=== PATIENT | male | born 1945 | race Caucasian/White ===

== ENCOUNTER 2021-08-05 07:56 | Inpatient (IN) | payer MEDICARE ==
[~2021-08-05] VITALS: Ht 182.9 cm; Wt 76.2 kg
[2021-08-05] MEDS ORDERED: AZITHROMYCIN 500 MG in DEXT 5% WATER 250 ML IV STA (08:20)
[2021-08-05] MEDS ORDERED: SODIUM CHLORIDE 0.9% 500 ML IV ONE (08:30)
[2021-08-05] MEDS ORDERED: DEXAMETHASONE 10 MG/ML VIAL IV ONE (08:30)
[2021-08-05] MEDS ORDERED: AZITHROMYCIN 500MG/250ML 250 ML IV SCH (08:30)
[2021-08-05] MEDS ORDERED: CEFTRIAXONE 1 G PREMIX 50 ML IV ONE (08:30)
[2021-08-05 08:52] LABS: HEMOGLOBIN. 16.5 g/dL (14.0-18.0); MEAN CORPUSCULAR HEMOGLOBIN 30.5 pg (28.0-32.0); MEAN CORPUSCULAR VOLUME 90.8 fL (80.0-94.0); MEAN PLATELET VOLUME 8.7 fl (7.4-10.4); PLATELET 291 x1000/uL (130-400); RED CELL DISTRIBUTION WIDTH 13.3 % (11.6-14.6)
[2021-08-05 08:59] LABS: CHLORIDE 96 mEq/L (98-107)
[2021-08-05 09:06] LABS: BG BASE EXCESS -0.2 mmol/L (-2.0-2.0); BG DEOXYHEMOGLOBIN 10.8 % (0.0-5.0); BG FRACTION INSPIRED OXYGEN 60; BG HCO3 ACT 22.7 mmol/L (22.0-26.0); BG METHEMOGLOBIN 0.3 % (0.0-1.5); BG OXYGEN SATURATION 89.1 % (92.0-98.5); BG OXYHEMOGLOBIN 87.9 % (94.0-97.0); BG PH 7.456 (7.350-7.450); BG PO2 56.2 mmHg (75.0-100.0); BG SAMPLE SITE RIGHT BRACHIAL; BG TOTAL HEMOGLOBIN 16.4 g/dL (12.0-18.0); BG TOTAL RESPIRATORY RATE 32 b/min; BG VENT MODE MASK - BIPAP
[2021-08-05 09:07] LABS: CREATINE KINASE 406 IU/L (39-308)
[2021-08-05 09:11] LABS: FIBRINOGEN 680 mg/dL (200-400); INR 1.2; PROTHROMBIN TIME 12.5 sec (9.6-11.0)
[2021-08-05 09:19] LABS: D-DIMER > 35.20 mg/L FEU (<0.50)
[2021-08-05 10:50] LABS: PLATELET ESTIMATE NORMAL
[2021-08-05 11:00] LABS: CLARITY URINE CLEAR (CLEAR); COLOR URINE DARK YELLOW (YELLOW); KETONES URINE NEGATIVE (NEGATIVE); LEUKOCYTE ESTERASE URINE NEGATIVE (NEGATIVE); NITRITE URINE NEGATIVE (NEGATIVE); OCCULT BLOOD URINE 1+ (NEGATIVE); PROTEIN URINE 3+ (NEGATIVE); SPECIFIC GRAVITY URINE 1.022 (1.005-1.030); UROBILINOGEN URINE 0.2 E.U./dL (0.2-1.0)
[2021-08-05] MEDS ORDERED: ONDANSETRON HCL 4MG/2ML INJ IV PRN (11:00)
[2021-08-05] MEDS ORDERED: CEFTRIAXONE 1 G PREMIX 50 ML IV SCH (11:00)
[2021-08-05] MEDS: ENOXAPARIN 30MG/0.3ML SYR SUBCUT SCH (11:30)
[2021-08-05 13:03] LABS: BG BASE EXCESS 0.1 mmol/L (-2.0-2.0); BG CARBOXYHEMOGLOBIN 0.2 % (0.5-1.5); BG DEOXYHEMOGLOBIN 3.3 % (0.0-5.0); BG FRACTION INSPIRED OXYGEN 100; BG HCO3 ACT 22.1 mmol/L (22.0-26.0); BG METHEMOGLOBIN 0.4 % (0.0-1.5); BG OXYGEN SATURATION 96.7 % (92.0-98.5); BG OXYHEMOGLOBIN 96.1 % (94.0-97.0); BG PCO2 29.7 mmHg (35.0-45.0); BG PO2 93.8 mmHg (75.0-100.0); BG SAMPLE SITE LEFT RADIAL; BG TOTAL HEMOGLOBIN 16.1 g/dL (12.0-18.0); BG VENT MODE MASK - BIPAP
[2021-08-05] MEDS ORDERED: SODIUM CHLORIDE 0.45% 1,000 ML IV SCH (13:15)
[2021-08-05] MEDS: ASPIRIN 81MG TABLET PO SCH (19:29)
[2021-08-06 05:28] LABS: HEMATOCRIT. 46.7 % (42.0-52.0); HEMOGLOBIN. 15.4 g/dL (14.0-18.0); MEAN CORPUSCULAR VOLUME 90.8 fL (80.0-94.0); MEAN PLATELET VOLUME 8.5 fl (7.4-10.4); PLATELET 126 x1000/uL (130-400); RED BLOOD CELL COUNT 5.14 mill/uL (4.7-6.1); RED CELL DISTRIBUTION WIDTH 13.7 % (11.6-14.6)
[2021-08-06] MEDS ORDERED: FAMOTIDINE 20MG/2ML VIAL IV NR (05:30)
[2021-08-06 05:34] LABS: CHLORIDE 100 mEq/L (98-107)
[2021-08-06 08:00] VITALS: BP 151/99
[2021-08-06] MEDS ORDERED: AZITHROMYCIN 500 MG in DEXT 5% WATER 250 ML IV SCH (09:00)
[2021-08-06] MEDS: AZITHROMYCIN 500 MG in DEXT 5% WATER 250 ML IV SCH (09:26)
[2021-08-06] MEDS: DEXAMETHASONE 10 MG/ML VIAL IV SCH (09:27)
[2021-08-06] MEDS: ASPIRIN 81MG TABLET PO SCH (09:27)
[2021-08-06] MEDS: CEFTRIAXONE 1,000 MG in DEXTROSE 5% WATER 50 ML IV SCH (09:28)
[2021-08-06 09:55] LABS: BG BASE EXCESS 0.1 mmol/L (-2.0-2.0); BG DEOXYHEMOGLOBIN 2.2 % (0.0-5.0); BG FRACTION INSPIRED OXYGEN 100; BG HCO3 ACT 23.4 mmol/L (22.0-26.0); BG METHEMOGLOBIN 0.5 % (0.0-1.5); BG OXYGEN SATURATION 97.8 % (92.0-98.5); BG OXYHEMOGLOBIN 97.3 % (94.0-97.0); BG PCO2 34.4 mmHg (35.0-45.0); BG PO2 107.3 mmHg (75.0-100.0); BG TOTAL HEMOGLOBIN 16.4 g/dL (12.0-18.0); BG VENT MODE MASK - BIPAP
[2021-08-06 10:53] VITALS: BP 151/91
[2021-08-06] MEDS ORDERED: AMLODIPINE 5MG TABLET PO SCH (11:30)
[2021-08-06 12:00] VITALS: BP 142/90
[2021-08-06 13:48] LABS: PLATELET ESTIMATE SLIGHTLY DECREASED
[2021-08-06] MEDS: ENOXAPARIN 30MG/0.3ML SYR SUBCUT SCH (14:25)
[2021-08-06] MEDS: SODIUM CHLORIDE 0.45% 1,000 ML IV SCH (14:26)
[2021-08-06 16:00] VITALS: BP 132/55
[2021-08-06 20:00] VITALS: BP 155/99
[2021-08-06] MEDS ORDERED: THROAT LOZENGES-BENZOCAINE/MENTH/CETYLPYRD CL LOZENGES MM PRN (20:00)
[2021-08-07] VITALS: BP 138/83
[2021-08-07 04:00] VITALS: BP 137/86
[2021-08-07] MEDS: SODIUM CHLORIDE 0.45% 1,000 ML IV SCH (06:02)
[2021-08-07 07:25] LABS: HEMATOCRIT. 41.2 % (42.0-52.0); HEMOGLOBIN. 13.9 g/dL (14.0-18.0); MEAN CORPUSCULAR HEMOGLOBIN 30.3 pg (28.0-32.0); MEAN CORPUSCULAR VOLUME 90.1 fL (80.0-94.0); MEAN PLATELET VOLUME 10.4 fl (7.4-10.4); PLATELET 72 x1000/uL (130-400); RED BLOOD CELL COUNT 4.57 mill/uL (4.7-6.1); RED CELL DISTRIBUTION WIDTH 13.9 % (11.6-14.6)
[2021-08-07 08:00] VITALS: BP 167/100
[2021-08-07] MEDS: CEFTRIAXONE 1,000 MG in DEXTROSE 5% WATER 50 ML IV SCH (09:43)
[2021-08-07] MEDS: AZITHROMYCIN 500 MG in DEXT 5% WATER 250 ML IV SCH (09:43)
[2021-08-07] MEDS: DEXAMETHASONE 10 MG/ML VIAL IV SCH (09:43)
[2021-08-07] MEDS: AMLODIPINE 5MG TABLET PO SCH ×2 (09:44→17:24)
[2021-08-07 09:51] LABS: BG BASE EXCESS -1.2 mmol/L (-2.0-2.0); BG CARBOXYHEMOGLOBIN 0.8 % (0.5-1.5); BG FRACTION INSPIRED OXYGEN 60; BG HCO3 ACT 21.7 mmol/L (22.0-26.0); BG METHEMOGLOBIN 0.4 % (0.0-1.5); BG OXYGEN SATURATION 92.9 % (92.0-98.5); BG OXYHEMOGLOBIN 91.8 % (94.0-97.0); BG SAMPLE SITE LEFT RADIAL; BG TOTAL HEMOGLOBIN 15.4 g/dL (12.0-18.0); BG TOTAL RESPIRATORY RATE 25 b/min; BG VENT MODE MASK - BIPAP
[2021-08-07 12:00] VITALS: BP 130/80
[2021-08-07] MEDS: BLOOD SUGAR DIAGNOSTIC STRIP TEST SCH ×3 (13:06→21:05)
[2021-08-07] MEDS: SODIUM CHLORIDE 0.9% 1,000 ML IV SCH ×2 (13:09→20:12)
[2021-08-07] MEDS: INSULIN LISPRO 100 UNITS/ML SUBCUT SCH ×3 (13:10→21:00)
[2021-08-07 16:00] VITALS: BP 130/81
[2021-08-07 19:04] LABS: PLATELET ESTIMATE DECREASED
[2021-08-07 20:00] VITALS: BP 117/78
[2021-08-08] VITALS: BP 113/71
[2021-08-08 04:00] VITALS: BP 121/72
[2021-08-08] MEDS: SODIUM CHLORIDE 0.9% 1,000 ML IV SCH ×3 (06:10→22:34)
[2021-08-08 07:44] LABS: HEMATOCRIT. 42.6 % (42.0-52.0); HEMOGLOBIN. 14.6 g/dL (14.0-18.0); MEAN CORPUSCULAR HEMOGLOBIN 31.1 pg (28.0-32.0); MEAN CORPUSCULAR VOLUME 90.6 fL (80.0-94.0); MEAN PLATELET VOLUME 10.2 fl (7.4-10.4); PLATELET 76 x1000/uL (130-400); RED BLOOD CELL COUNT 4.71 mill/uL (4.7-6.1); RED CELL DISTRIBUTION WIDTH 14.3 % (11.6-14.6)
[2021-08-08] MEDS: BLOOD SUGAR DIAGNOSTIC STRIP TEST SCH ×4 (07:52→21:00)
[2021-08-08 08:00] VITALS: BP 126/77
[2021-08-08 08:15] LABS: HEPATITIS B SURFACE ANTIGEN NEGATIVE
[2021-08-08] MEDS: AMLODIPINE 5MG TABLET PO SCH ×2 (08:25→09:00)
[2021-08-08] MEDS: MULTIVITAMINS,THER W-MINERALS TABLET PO SCH (08:25)
[2021-08-08] MEDS: DEXAMETHASONE 10 MG/ML VIAL IV SCH (08:25)
[2021-08-08] MEDS: AZITHROMYCIN 500 MG in DEXT 5% WATER 250 ML IV SCH (08:26)
[2021-08-08] MEDS: CEFTRIAXONE 1,000 MG in DEXTROSE 5% WATER 50 ML IV SCH (08:26)
[2021-08-08] MEDS: INSULIN LISPRO 100 UNITS/ML SUBCUT SCH ×4 (08:28→22:35)
[2021-08-08 12:00] VITALS: BP 121/76
[2021-08-08] MEDS ORDERED: THROAT LOZENGES-BENZOCAINE/MENTH/CETYLPYRD CL LOZENGES MM PRN (13:15)
[2021-08-08 13:26] LABS: PLATELET ESTIMATE DECREASED
[2021-08-08 16:00] VITALS: BP 121/85
[2021-08-08 20:43] VITALS: BP 144/73
[2021-08-08] MEDS: TAMSULOSIN HCL 0.4MG SR CAPSULE PO SCH (22:34)
[2021-08-09 00:05] VITALS: BP 133/69
[2021-08-09 04:00] VITALS: BP 145/80
[2021-08-09] MEDS: SODIUM CHLORIDE 0.9% 1,000 ML IV SCH ×3 (06:05→23:04)
[2021-08-09 06:21] LABS: HEMATOCRIT. 41.9 % (42.0-52.0); HEMOGLOBIN. 14.3 g/dL (14.0-18.0); MEAN CORPUSCULAR HEMOGLOBIN 30.6 pg (28.0-32.0); MEAN PLATELET VOLUME 9.9 fl (7.4-10.4); PLATELET 62 x1000/uL (130-400); RED BLOOD CELL COUNT 4.65 mill/uL (4.7-6.1)
[2021-08-09 06:32] LABS: CHLORIDE 109 mEq/L (98-107)
[2021-08-09] MEDS: BLOOD SUGAR DIAGNOSTIC STRIP TEST SCH ×4 (07:57→21:25)
[2021-08-09 08:00] VITALS: BP 143/85
[2021-08-09] MEDS: CEFTRIAXONE 1,000 MG in DEXTROSE 5% WATER 50 ML IV SCH (08:27)
[2021-08-09] MEDS: DEXAMETHASONE 10 MG/ML VIAL IV SCH (08:28)
[2021-08-09] MEDS: AZITHROMYCIN 500 MG in DEXT 5% WATER 250 ML IV SCH (08:28)
[2021-08-09] MEDS: AMLODIPINE 5MG TABLET PO SCH (08:30)
[2021-08-09] MEDS: INSULIN LISPRO 100 UNITS/ML SUBCUT SCH ×4 (08:34→21:34)
[2021-08-09 12:00] VITALS: BP 132/76
[2021-08-09 12:18] LABS: PLATELET ESTIMATE DECREASED
[2021-08-09] MEDS: MULTIVITAMINS,THER W-MINERALS TABLET PO SCH (13:13)
[2021-08-09] MEDS: GUAIFENESIN 600MG ER TABLET PO SCH ×2 (13:13→21:35)
[2021-08-09 16:00] VITALS: BP 128/68
[2021-08-09 19:10] LABS: ANA IFA Negative (.)
[2021-08-09 20:44] VITALS: BP 162/88
[2021-08-09] MEDS: INSULIN GLARGINE UD 100 UNITS/ML SYR SUBCUT SCH (21:34)
[2021-08-09] MEDS: TAMSULOSIN HCL 0.4MG SR CAPSULE PO SCH (21:37)
[2021-08-09] MEDS: HYDRALAZINE 20MG/ML VIAL IV PRN (21:40)
[2021-08-09] MEDS ORDERED: INSULIN GLARGINE UD 100 UNITS/ML SYR SUBCUT SCH (22:00)
[2021-08-10 00:49] VITALS: BP 164/89
[2021-08-10 04:00] VITALS: BP 129/77
[2021-08-10] MEDS: BLOOD SUGAR DIAGNOSTIC STRIP TEST SCH ×5 (07:41→21:34)
[2021-08-10] MEDS: INSULIN LISPRO 100 UNITS/ML SUBCUT SCH ×4 (07:41→21:36)
[2021-08-10 08:00] VITALS: BP 146/82
[2021-08-10] MEDS: MULTIVITAMINS,THER W-MINERALS TABLET PO SCH (08:37)
[2021-08-10] MEDS: CEFTRIAXONE 1,000 MG in DEXTROSE 5% WATER 50 ML IV SCH (08:41)
[2021-08-10] MEDS: AMLODIPINE 5MG TABLET PO SCH (08:41)
[2021-08-10] MEDS: AZITHROMYCIN 500 MG in DEXT 5% WATER 250 ML IV SCH (08:41)
[2021-08-10] MEDS: GUAIFENESIN 600MG ER TABLET PO SCH ×2 (08:41→21:35)
[2021-08-10] MEDS: DEXAMETHASONE 10 MG/ML VIAL IV SCH (08:42)
[2021-08-10] MEDS: INSULIN GLARGINE UD 100 UNITS/ML SYR SUBCUT SCH ×2 (09:14→21:37)
[2021-08-10 12:00] VITALS: BP 133/76
[2021-08-10 16:20] VITALS: BP 130/73
[2021-08-10] MEDS ORDERED: LEVOFLOXACIN 750MG PREMIX 150 ML IV NR (16:30)
[2021-08-10] MEDS: SODIUM CHLORIDE 0.9% 1,000 ML IV SCH (17:58)
[2021-08-10] MEDS ORDERED: LACTULOSE 20G/30ML UDC PO NR (18:30)
[2021-08-10 20:00] VITALS: BP 147/85
[2021-08-10 20:09] LABS: HEMATOCRIT. 40.5 % (42.0-52.0); HEMOGLOBIN. 13.2 g/dL (14.0-18.0); MEAN CORPUSCULAR HEMOGLOBIN 30.1 pg (28.0-32.0); MEAN CORPUSCULAR VOLUME 92.1 fL (80.0-94.0); MEAN PLATELET VOLUME 10.5 fl (7.4-10.4); PLATELET 68 x1000/uL (130-400); RED CELL DISTRIBUTION WIDTH 14.3 % (11.6-14.6)
[2021-08-10 20:34] LABS: CHLORIDE 110 mEq/L (98-107)
[2021-08-10] MEDS: TAMSULOSIN HCL 0.4MG SR CAPSULE PO SCH (21:35)
[2021-08-10 21:42] LABS: PLATELET ESTIMATE DECREASED
[2021-08-11 00:01] VITALS: BP 147/87
[2021-08-11] MEDS: SODIUM CHLORIDE 0.9% 1,000 ML IV SCH (02:45)
[2021-08-11 04:00] VITALS: BP 164/94
[2021-08-11] MEDS: HYDRALAZINE 20MG/ML VIAL IV PRN (04:06)
[2021-08-11] MEDS: BLOOD SUGAR DIAGNOSTIC STRIP TEST SCH ×4 (05:56→21:14)
[2021-08-11 08:00] VITALS: BP 156/88
[2021-08-11] MEDS: INSULIN LISPRO 100 UNITS/ML SUBCUT SCH ×4 (08:10→21:09)
[2021-08-11 08:34] LABS: HEMATOCRIT. 41.5 % (42.0-52.0); HEMOGLOBIN. 13.6 g/dL (14.0-18.0); MEAN CORPUSCULAR VOLUME 91.8 fL (80.0-94.0); MEAN PLATELET VOLUME 9.7 fl (7.4-10.4); PLATELET 72 x1000/uL (130-400); RED BLOOD CELL COUNT 4.52 mill/uL (4.7-6.1); RED CELL DISTRIBUTION WIDTH 14.2 % (11.6-14.6)
[2021-08-11] MEDS ORDERED: LEVOFLOXACIN 500MG PREMIX 100 ML IV SCH (09:00)
[2021-08-11] MEDS: MULTIVITAMINS,THER W-MINERALS TABLET PO SCH (09:24)
[2021-08-11] MEDS: AMLODIPINE 5MG TABLET PO SCH ×3 (09:25→21:10)
[2021-08-11] MEDS: GUAIFENESIN 600MG ER TABLET PO SCH ×2 (09:25→21:09)
[2021-08-11] MEDS: ACETAMINOPHEN 325MG TABLET PO PRN ×2 (09:26→21:10)
[2021-08-11] MEDS: DEXAMETHASONE 10 MG/ML VIAL IV SCH (09:26)
[2021-08-11] MEDS: DOCUSATE SODIUM 250MG CAPSULE PO SCH (09:28)
[2021-08-11] MEDS: INSULIN GLARGINE UD 100 UNITS/ML SYR SUBCUT SCH ×2 (09:29→21:11)
[2021-08-11 12:00] VITALS: BP 141/85
[2021-08-11 13:31] LABS: BG BASE EXCESS -1.9 mmol/L (-2.0-2.0); BG CARBOXYHEMOGLOBIN 0.2 % (0.5-1.5); BG DEOXYHEMOGLOBIN 6.1 % (0.0-5.0); BG FRACTION INSPIRED OXYGEN 99.8; BG HCO3 ACT 20.8 mmol/L (22.0-26.0); BG METHEMOGLOBIN 0.2 % (0.0-1.5); BG OXYGEN SATURATION 93.9 % (92.0-98.5); BG OXYHEMOGLOBIN 93.5 % (94.0-97.0); BG PCO2 30.1 mmHg (35.0-45.0); BG PH 7.458 (7.350-7.450); BG PO2 71.5 mmHg (75.0-100.0); BG SAMPLE SITE LEFT BRACHIAL; BG TOTAL HEMOGLOBIN 13.7 g/dL (12.0-18.0); BG VENT MODE MASK - NRB
[2021-08-11] MEDS ORDERED: SORBITOL 70% SOLN 30ML PO NR (14:30)
[2021-08-11 16:00] VITALS: BP 135/92
[2021-08-11 18:49] LABS: BG BASE EXCESS -1.3 mmol/L (-2.0-2.0); BG CARBOXYHEMOGLOBIN 0.3 % (0.5-1.5); BG FRACTION INSPIRED OXYGEN 100; BG HCO3 ACT 21.8 mmol/L (22.0-26.0); BG METHEMOGLOBIN 0.2 % (0.0-1.5); BG OXYHEMOGLOBIN 97.5 % (94.0-97.0); BG PCO2 31.9 mmHg (35.0-45.0); BG PH 7.452 (7.350-7.450); BG PO2 110.2 mmHg (75.0-100.0); BG SAMPLE SITE LEFT RADIAL; BG TOTAL HEMOGLOBIN 13.1 g/dL (12.0-18.0); BG TOTAL RESPIRATORY RATE 24 b/min; BG VENT MODE MASK - BIPAP
[2021-08-11 20:00] VITALS: BP 117/74
[2021-08-11] MEDS: TAMSULOSIN HCL 0.4MG SR CAPSULE PO SCH (21:16)
[2021-08-12] VITALS (26 sets, daily range): BP systolic 86–145; BP diastolic 62–92
[2021-08-12 06:48] LABS: HEMOGLOBIN. 12.5 g/dL (14.0-18.0); MEAN CORPUSCULAR HEMOGLOBIN 29.9 pg (28.0-32.0); MEAN PLATELET VOLUME 9.8 fl (7.4-10.4); PLATELET 63 x1000/uL (130-400); RED BLOOD CELL COUNT 4.18 mill/uL (4.7-6.1); RED CELL DISTRIBUTION WIDTH 14.2 % (11.6-14.6)
[2021-08-12 07:03] LABS: CHLORIDE 114 mEq/L (98-107)
[2021-08-12] MEDS: INSULIN LISPRO 100 UNITS/ML SUBCUT SCH ×3 (07:10→17:29)
[2021-08-12] MEDS: BLOOD SUGAR DIAGNOSTIC STRIP TEST SCH ×4 (07:10→15:58)
[2021-08-12 07:13] LABS: PHOSPHORUS 4.5 mg/dL (2.5-4.9)
[2021-08-12] MEDS: AMLODIPINE 5MG TABLET PO SCH (09:00)
[2021-08-12] MEDS ORDERED: SODIUM CHLORIDE 0.45% 1,000 ML IV SCH (09:00)
[2021-08-12] MEDS: DOCUSATE SODIUM 250MG CAPSULE PO SCH (09:18)
[2021-08-12] MEDS: DEXAMETHASONE 10 MG/ML VIAL IV SCH (09:18)
[2021-08-12] MEDS: MULTIVITAMINS,THER W-MINERALS TABLET PO SCH (09:18)
[2021-08-12] MEDS: GUAIFENESIN 600MG ER TABLET PO SCH ×2 (09:18→20:57)
[2021-08-12] MEDS ORDERED: ETOMIDATE 2MG/ML 10ML VIAL IV ONE ×2 (10:00→13:15)
[2021-08-12] MEDS ORDERED: SUCCINYLCHOLINE CHLORIDE 200MG/10ML IV ONE ×2 (10:00→13:15)
[2021-08-12] MEDS ORDERED: LACTULOSE 20G/30ML UDC PO NR (10:00)
[2021-08-12 10:18] LABS: NUCLEATED RED BLOOD CELLS 1 /100 WBC; PLATELET ESTIMATE DECREASED
[2021-08-12] MEDS ORDERED: SODIUM POLYSTYRENE SULFONATE 15 G/60 ML BOT PO NR (10:30)
[2021-08-12] MEDS ORDERED: LEVOFLOXACIN 750MG PREMIX 150 ML IV SCH (11:00)
[2021-08-12] MEDS: INSULIN GLARGINE UD 100 UNITS/ML SYR SUBCUT SCH ×2 (11:13→21:45)
[2021-08-12] MEDS: METOPROLOL TARTRATE 5MG/5ML VIAL IV PRN (12:43)
[2021-08-12 12:58] LABS: BG BASE EXCESS -3.9 mmol/L (-2.0-2.0); BG CARBOXYHEMOGLOBIN 0.5 % (0.5-1.5); BG DEOXYHEMOGLOBIN 36.7 % (0.0-5.0); BG FRACTION INSPIRED OXYGEN 100; BG HCO3 ACT 20.8 mmol/L (22.0-26.0); BG METHEMOGLOBIN 0.4 % (0.0-1.5); BG OXYHEMOGLOBIN 62.4 % (94.0-97.0); BG PH 7.368 (7.350-7.450); BG SAMPLE SITE LEFT RADIAL; BG TOTAL HEMOGLOBIN 14.1 g/dL (12.0-18.0); BG TOTAL RESPIRATORY RATE 38 b/min; BG VENT MODE MASK - BIPAP
[2021-08-12] MEDS ORDERED: MIDAZOLAM 100MG/100ML PMX 100 ML IV PRN (13:30)
[2021-08-12] MEDS: MIDAZOLAM HCL 100 MG in SODIUM CHLORIDE 0.9% 100 ML IV PRN (14:12)
[2021-08-12] MEDS: FENTANYL CITRATE/PF 2,500 MCG in SODIUM CHLORIDE 0.9% 200 ML IV PRN (14:14)
[2021-08-12] MEDS: PHENYLEPHRINE 100 MG in DEXT 5% WATER 240 ML IV PRN (15:55)
[2021-08-12] MEDS: ENOXAPARIN 80MG/0.8ML SYR SUBCUT SCH (15:57)
[2021-08-12] MEDS: DEXT 5%/0.2% NACL 1,000 ML IV SCH (16:29)
[2021-08-12 19:07] LABS: ANTI-MYELOPEROXIDASE AB < 9.0 U/mL (0.0-9.0); ANTI-PROTEINASE 3 ABS < 3.5 U/mL (0.0-3.5)
[2021-08-12 20:35] LABS: BG BASE EXCESS -1.9 mmol/L (-2.0-2.0); BG CARBOXYHEMOGLOBIN 0.3 % (0.5-1.5); BG DEOXYHEMOGLOBIN 4.2 % (0.0-5.0); BG FRACTION INSPIRED OXYGEN 100; BG HCO3 ACT 23.1 mmol/L (22.0-26.0); BG METHEMOGLOBIN 0.2 % (0.0-1.5); BG OXYGEN SATURATION 95.8 % (92.0-98.5); BG OXYHEMOGLOBIN 95.3 % (94.0-97.0); BG PCO2 40.3 mmHg (35.0-45.0); BG PH 7.377 (7.350-7.450); BG PO2 84.1 mmHg (75.0-100.0); BG SAMPLE SITE RIGHT RADIAL; BG TOTAL HEMOGLOBIN 12.1 g/dL (12.0-18.0); BG TOTAL RESPIRATORY RATE 19 b/min; BG VENT MODE VENT - AC
[2021-08-12] MEDS: TAMSULOSIN HCL 0.4MG SR CAPSULE PO SCH (21:00)
[2021-08-13] VITALS (93 sets, daily range): BP systolic 87–158; BP diastolic 50–113
[2021-08-13] MEDS: BLOOD SUGAR DIAGNOSTIC STRIP TEST SCH ×4 (01:25→18:00)
[2021-08-13] MEDS: INSULIN LISPRO 100 UNITS/ML SUBCUT SCH ×4 (01:25→18:00)
[2021-08-13] MEDS: ENOXAPARIN 80MG/0.8ML SYR SUBCUT SCH ×2 (02:54→14:17)
[2021-08-13 05:43] LABS: HEMATOCRIT. 37.5 % (42.0-52.0); HEMOGLOBIN. 12.5 g/dL (14.0-18.0); MEAN CORPUSCULAR HEMOGLOBIN 30.4 pg (28.0-32.0); MEAN CORPUSCULAR VOLUME 91.4 fL (80.0-94.0); MEAN PLATELET VOLUME 10.1 fl (7.4-10.4); PLATELET 108 x1000/uL (130-400); RED BLOOD CELL COUNT 4.11 mill/uL (4.7-6.1); RED CELL DISTRIBUTION WIDTH 14.2 % (11.6-14.6)
[2021-08-13 05:55] LABS: CHLORIDE 110 mEq/L (98-107)
[2021-08-13 07:26] LABS: PLATELET ESTIMATE DECREASED
[2021-08-13 08:51] LABS: PLATELET ESTIMATE DECREASED
[2021-08-13 09:11] LABS: GLOMERULAR BASEMENT MEMB AB 4 units (0-20)
[2021-08-13 09:15] LABS: BG BASE EXCESS 1.2 mmol/L (-2.0-2.0); BG CARBOXYHEMOGLOBIN 0.3 % (0.5-1.5); BG FRACTION INSPIRED OXYGEN 100; BG HCO3 ACT 26.8 mmol/L (22.0-26.0); BG METHEMOGLOBIN 0.3 % (0.0-1.5); BG OXYHEMOGLOBIN 97.4 % (94.0-97.0); BG PCO2 46.7 mmHg (35.0-45.0); BG PH 7.377 (7.350-7.450); BG PO2 109.5 mmHg (75.0-100.0); BG SAMPLE SITE RIGHT RADIAL; BG TOTAL HEMOGLOBIN 12.4 g/dL (12.0-18.0); BG VENT MODE VENT - AC
[2021-08-13] MEDS ORDERED: SODIUM POLYSTYRENE SULFONATE 15 G/60 ML BOT PO NR (09:30)
[2021-08-13] MEDS ORDERED: SODIUM POLYSTYRENE SULFONATE 15 G/60 ML BOT PO ONE (09:30)
[2021-08-13] MEDS: MULTIVITAMINS,THER W-MINERALS TABLET PO SCH (09:44)
[2021-08-13] MEDS: DEXAMETHASONE 10 MG/ML VIAL IV SCH (09:44)
[2021-08-13] MEDS: GUAIFENESIN 600MG ER TABLET PO SCH ×2 (09:44→20:54)
[2021-08-13] MEDS: DOCUSATE SODIUM 250MG CAPSULE PO SCH (09:44)
[2021-08-13] MEDS: DEXT 5%/0.2% NACL 1,000 ML IV SCH (09:45)
[2021-08-13] MEDS: INSULIN GLARGINE UD 100 UNITS/ML SYR SUBCUT SCH ×2 (09:48→22:09)
[2021-08-13] MEDS ORDERED: VANCOMYCIN 1500MG in DEXTROSE 5% WATER 250ML IV NR (11:00)
[2021-08-13 13:06] LABS: ATYPICAL P-ANCA <1:20 titer (Neg:<1:20); CYTOPLASMIC C-ANCA <1:20 titer (Neg:<1:20); PERINUCLEAR P-ANCA <1:20 titer (Neg:<1:20)
[2021-08-13] MEDS: MIDAZOLAM HCL 100 MG in SODIUM CHLORIDE 0.9% 100 ML IV PRN (14:21)
[2021-08-13 15:46] LABS: CLARITY URINE TURBID (CLEAR); COLOR URINE ORANGE (YELLOW); KETONES URINE NEGATIVE (NEGATIVE); LEUKOCYTE ESTERASE URINE 1+ (NEGATIVE); NITRITE URINE NEGATIVE (NEGATIVE); OCCULT BLOOD URINE 3+ (NEGATIVE); PROTEIN URINE 2+ (NEGATIVE); SPECIFIC GRAVITY URINE 1.019 (1.005-1.030)
[2021-08-13] MEDS: PIPERACILLIN/TAZOBACTAM 3.375 G in DEXTROSE 5% WATER 50 ML IV SCH ×2 (16:13→22:08)
[2021-08-13] MEDS: TAMSULOSIN HCL 0.4MG SR CAPSULE PO SCH (21:00)
[2021-08-13] MEDS: FENTANYL CITRATE/PF 2,500 MCG in SODIUM CHLORIDE 0.9% 200 ML IV PRN (22:38)
[2021-08-14] VITALS (91 sets, daily range): BP systolic 94–168; BP diastolic 55–114
[2021-08-14] MEDS: BLOOD SUGAR DIAGNOSTIC STRIP TEST SCH ×4 (00:18→18:00)
[2021-08-14] MEDS: DEXT 5%/0.2% NACL 1,000 ML IV SCH ×2 (01:50→18:36)
[2021-08-14] MEDS: ENOXAPARIN 80MG/0.8ML SYR SUBCUT SCH ×2 (03:48→15:20)
[2021-08-14] MEDS: INSULIN LISPRO 100 UNITS/ML SUBCUT SCH ×4 (06:00→18:00)
[2021-08-14] MEDS: PIPERACILLIN/TAZOBACTAM 3.375 G in DEXTROSE 5% WATER 50 ML IV SCH ×3 (06:12→22:43)
[2021-08-14 06:16] LABS: HEMATOCRIT. 30.5 % (42.0-52.0); HEMOGLOBIN. 10.2 g/dL (14.0-18.0); MEAN CORPUSCULAR HEMOGLOBIN 30.4 pg (28.0-32.0); MEAN CORPUSCULAR VOLUME 90.6 fL (80.0-94.0); MEAN PLATELET VOLUME 10.4 fl (7.4-10.4); PLATELET 119 x1000/uL (130-400); RED BLOOD CELL COUNT 3.37 mill/uL (4.7-6.1)
[2021-08-14 08:20] LABS: BG BASE EXCESS 0.7 mmol/L (-2.0-2.0); BG CARBOXYHEMOGLOBIN 0.1 % (0.5-1.5); BG DEOXYHEMOGLOBIN 3.9 % (0.0-5.0); BG HCO3 ACT 26.6 mmol/L (22.0-26.0); BG METHEMOGLOBIN 0.4 % (0.0-1.5); BG OXYGEN SATURATION 96.1 % (92.0-98.5); BG OXYHEMOGLOBIN 95.6 % (94.0-97.0); BG PCO2 48.3 mmHg (35.0-45.0); BG PH 7.359 (7.350-7.450); BG PO2 87.3 mmHg (75.0-100.0); BG SAMPLE SITE RIGHT BRACHIAL; BG VENT MODE VENT - AC
[2021-08-14] MEDS: INSULIN GLARGINE UD 100 UNITS/ML SYR SUBCUT SCH ×2 (10:00→22:45)
[2021-08-14] MEDS: MULTIVITAMINS,THER W-MINERALS TABLET PO SCH (10:22)
[2021-08-14] MEDS: DOCUSATE SODIUM 250MG CAPSULE PO SCH (10:22)
[2021-08-14] MEDS: PANTOPRAZOLE SODIUM 40 MG/VIAL IV SCH (10:22)
[2021-08-14] MEDS: DEXAMETHASONE 10 MG/ML VIAL IV SCH (10:22)
[2021-08-14] MEDS: GUAIFENESIN 600MG ER TABLET PO SCH ×2 (10:31→20:50)
[2021-08-14] MEDS: VANCOMYCIN 1 G PREMIX 200 ML IV SCH (11:18)
[2021-08-14 12:36] LABS: PLATELET ESTIMATE SLIGHTLY DECREASED
[2021-08-14] MEDS: TAMSULOSIN HCL 0.4MG SR CAPSULE PO SCH (20:50)
[2021-08-14] MEDS: MIDAZOLAM HCL 100 MG in SODIUM CHLORIDE 0.9% 100 ML IV PRN (21:04)
[2021-08-15] VITALS (97 sets, daily range): BP systolic 105–142; BP diastolic 66–97
[2021-08-15] MEDS: ENOXAPARIN 80MG/0.8ML SYR SUBCUT SCH ×2 (03:40→15:11)
[2021-08-15 05:43] LABS: HEMATOCRIT. 35.3 % (42.0-52.0); HEMOGLOBIN. 11.7 g/dL (14.0-18.0); MEAN CORPUSCULAR HEMOGLOBIN 30.4 pg (28.0-32.0); MEAN CORPUSCULAR VOLUME 91.5 fL (80.0-94.0); MEAN PLATELET VOLUME 9.9 fl (7.4-10.4); PLATELET 121 x1000/uL (130-400); RED BLOOD CELL COUNT 3.86 mill/uL (4.7-6.1)
[2021-08-15] MEDS: MIDAZOLAM HCL 100 MG in SODIUM CHLORIDE 0.9% 100 ML IV PRN (05:43)
[2021-08-15] MEDS: PIPERACILLIN/TAZOBACTAM 3.375 G in DEXTROSE 5% WATER 50 ML IV SCH ×3 (05:43→23:24)
[2021-08-15] MEDS: INSULIN LISPRO 100 UNITS/ML SUBCUT SCH ×3 (06:00→15:12)
[2021-08-15] MEDS: BLOOD SUGAR DIAGNOSTIC STRIP TEST SCH ×3 (06:00→11:59)
[2021-08-15] MEDS: FENTANYL CITRATE/PF 2,500 MCG in SODIUM CHLORIDE 0.9% 200 ML IV PRN (06:01)
[2021-08-15 06:08] LABS: PHOSPHORUS 4.6 mg/dL (2.5-4.9)
[2021-08-15 09:49] LABS: BG BASE EXCESS 1.1 mmol/L (-2.0-2.0); BG CARBOXYHEMOGLOBIN 0.3 % (0.5-1.5); BG FRACTION INSPIRED OXYGEN 70; BG HCO3 ACT 26.6 mmol/L (22.0-26.0); BG METHEMOGLOBIN 0.2 % (0.0-1.5); BG OXYHEMOGLOBIN 95.5 % (94.0-97.0); BG PCO2 46.1 mmHg (35.0-45.0); BG PH 7.379 (7.350-7.450); BG PO2 85.3 mmHg (75.0-100.0); BG SAMPLE SITE RIGHT RADIAL; BG TOTAL HEMOGLOBIN 11.6 g/dL (12.0-18.0); BG VENT MODE VENT - AC
[2021-08-15] MEDS: DOCUSATE SODIUM 250MG CAPSULE PO SCH (11:12)
[2021-08-15] MEDS: VANCOMYCIN 1 G PREMIX 200 ML IV SCH (11:12)
[2021-08-15] MEDS: MULTIVITAMINS,THER W-MINERALS TABLET PO SCH (11:12)
[2021-08-15] MEDS: GUAIFENESIN 600MG ER TABLET PO SCH ×2 (11:12→21:00)
[2021-08-15] MEDS: DEXAMETHASONE 10 MG/ML VIAL IV SCH (11:13)
[2021-08-15] MEDS: PANTOPRAZOLE SODIUM 40 MG/VIAL IV SCH (11:13)
[2021-08-15] MEDS: INSULIN GLARGINE UD 100 UNITS/ML SYR SUBCUT SCH ×2 (11:14→22:00)
[2021-08-15] MEDS: DEXT 5%/0.2% NACL 1,000 ML IV SCH (11:15)
[2021-08-15 11:28] LABS: PLATELET ESTIMATE SLIGHTLY DECREASED
[2021-08-15] MEDS: TAMSULOSIN HCL 0.4MG SR CAPSULE PO SCH (21:00)
[2021-08-16] VITALS (95 sets, daily range): BP systolic 102–130; BP diastolic 53–86
[2021-08-16] MEDS: ENOXAPARIN 80MG/0.8ML SYR SUBCUT SCH ×2 (02:30→14:12)
[2021-08-16] MEDS: DEXT 5%/0.2% NACL 1,000 ML IV SCH ×2 (05:08→21:35)
[2021-08-16] MEDS: MIDAZOLAM HCL 100 MG in SODIUM CHLORIDE 0.9% 100 ML IV PRN ×2 (05:10→22:26)
[2021-08-16] MEDS: BLOOD SUGAR DIAGNOSTIC STRIP TEST SCH ×5 (06:00→23:01)
[2021-08-16] MEDS: INSULIN LISPRO 100 UNITS/ML SUBCUT SCH ×5 (06:00→23:01)
[2021-08-16 06:18] LABS: HEMATOCRIT. 35.5 % (42.0-52.0); HEMOGLOBIN. 11.9 g/dL (14.0-18.0); MEAN CORPUSCULAR HEMOGLOBIN 30.8 pg (28.0-32.0); MEAN CORPUSCULAR VOLUME 91.5 fL (80.0-94.0); RED BLOOD CELL COUNT 3.87 mill/uL (4.7-6.1); RED CELL DISTRIBUTION WIDTH 13.8 % (11.6-14.6)
[2021-08-16 06:30] LABS: PHOSPHORUS 5.9 mg/dL (2.5-4.9)
[2021-08-16] MEDS: PIPERACILLIN/TAZOBACTAM 3.375 G in DEXTROSE 5% WATER 50 ML IV SCH ×3 (06:45→21:34)
[2021-08-16] MEDS: PANTOPRAZOLE SODIUM 40 MG/VIAL IV SCH (08:37)
[2021-08-16] MEDS: DEXAMETHASONE 10 MG/ML VIAL IV SCH (08:38)
[2021-08-16] MEDS: DOCUSATE SODIUM 250MG CAPSULE PO SCH (08:38)
[2021-08-16] MEDS: GUAIFENESIN 600MG ER TABLET PO SCH ×2 (08:38→21:34)
[2021-08-16] MEDS: MULTIVITAMINS,THER W-MINERALS TABLET PO SCH (08:38)
[2021-08-16 08:40] LABS: PLATELET ESTIMATE NORMAL
[2021-08-16 08:41] LABS: MEAN PLATELET VOLUME 10.1 fl (7.4-10.4)
[2021-08-16 08:42] LABS: PLATELET 163 x1000/uL (130-400)
[2021-08-16] MEDS: INSULIN GLARGINE UD 100 UNITS/ML SYR SUBCUT SCH ×2 (09:06→23:00)
[2021-08-16 10:48] LABS: BG BASE EXCESS -3.5 mmol/L (-2.0-2.0); BG CARBOXYHEMOGLOBIN 0.3 % (0.5-1.5); BG DEOXYHEMOGLOBIN 5.8 % (0.0-5.0); BG FRACTION INSPIRED OXYGEN 70; BG HCO3 ACT 22.5 mmol/L (22.0-26.0); BG METHEMOGLOBIN 0.2 % (0.0-1.5); BG OXYGEN SATURATION 94.2 % (92.0-98.5); BG OXYHEMOGLOBIN 93.7 % (94.0-97.0); BG PCO2 44.4 mmHg (35.0-45.0); BG PH 7.323 (7.350-7.450); BG PO2 76.5 mmHg (75.0-100.0); BG SAMPLE SITE RIGHT BRACHIAL; BG TOTAL HEMOGLOBIN 11.8 g/dL (12.0-18.0); BG TOTAL RESPIRATORY RATE 16 b/min; BG VENT MODE VENT - AC
[2021-08-16 11:14] LABS: CHLORIDE 106 mEq/L (98-107)
[2021-08-16] MEDS: TAMSULOSIN HCL 0.4MG SR CAPSULE PO SCH (21:34)
[2021-08-16] MEDS: FENTANYL CITRATE/PF 2,500 MCG in SODIUM CHLORIDE 0.9% 200 ML IV PRN (22:27)
[2021-08-17] VITALS (91 sets, daily range): BP systolic 97–152; BP diastolic 55–86
[2021-08-17] MEDS: BLOOD SUGAR DIAGNOSTIC STRIP TEST SCH ×3 (05:16→16:28)
[2021-08-17] MEDS: INSULIN LISPRO 100 UNITS/ML SUBCUT SCH ×3 (05:16→16:53)
[2021-08-17] MEDS: PIPERACILLIN/TAZOBACTAM 3.375 G in DEXTROSE 5% WATER 50 ML IV SCH ×3 (05:17→22:32)
[2021-08-17 05:53] LABS: HEMATOCRIT. 32.2 % (42.0-52.0); HEMOGLOBIN. 10.8 g/dL (14.0-18.0); MEAN CORPUSCULAR HEMOGLOBIN 30.3 pg (28.0-32.0); MEAN CORPUSCULAR VOLUME 90.6 fL (80.0-94.0); MEAN PLATELET VOLUME 10.9 fl (7.4-10.4); PLATELET 166 x1000/uL (130-400); RED BLOOD CELL COUNT 3.56 mill/uL (4.7-6.1); RED CELL DISTRIBUTION WIDTH 13.5 % (11.6-14.6)
[2021-08-17 06:25] LABS: PHOSPHORUS 4.8 mg/dL (2.5-4.9)
[2021-08-17 07:59] LABS: BG BASE EXCESS -1.9 mmol/L (-2.0-2.0); BG CARBOXYHEMOGLOBIN 0.3 % (0.5-1.5); BG HCO3 ACT 25.5 mmol/L (22.0-26.0); BG METHEMOGLOBIN 0.3 % (0.0-1.5); BG OXYGEN SATURATION 89.9 % (92.0-98.5); BG OXYHEMOGLOBIN 89.4 % (94.0-97.0); BG PCO2 54.7 mmHg (35.0-45.0); BG PH 7.286 (7.350-7.450); BG PO2 63.6 mmHg (75.0-100.0); BG SAMPLE SITE RIGHT RADIAL; BG TOTAL HEMOGLOBIN 12.8 g/dL (12.0-18.0); BG VENT MODE VENT - AC
[2021-08-17] MEDS: GUAIFENESIN 600MG ER TABLET PO SCH ×2 (09:03→22:32)
[2021-08-17] MEDS: PANTOPRAZOLE SODIUM 40 MG/VIAL IV SCH (09:03)
[2021-08-17] MEDS: MULTIVITAMINS,THER W-MINERALS TABLET PO SCH (09:03)
[2021-08-17] MEDS: DEXAMETHASONE 10 MG/ML VIAL IV SCH (09:03)
[2021-08-17] MEDS: DOCUSATE SODIUM SUGAR FREE 100MG/10ML UDC NG SCH (09:03)
[2021-08-17 10:01] LABS: PLATELET ESTIMATE NORMAL
[2021-08-17] MEDS: INSULIN GLARGINE UD 100 UNITS/ML SYR SUBCUT SCH ×2 (10:15→22:33)
[2021-08-17] MEDS: MIDAZOLAM HCL 100 MG in SODIUM CHLORIDE 0.9% 100 ML IV PRN ×2 (11:25→22:44)
[2021-08-17] MEDS: FENTANYL CITRATE/PF 2,500 MCG in SODIUM CHLORIDE 0.9% 200 ML IV PRN ×2 (11:26→23:26)
[2021-08-17] MEDS: ENOXAPARIN 80MG/0.8ML SYR SUBCUT SCH (14:18)
[2021-08-17] MEDS ORDERED: [UNRECOGNIZED DRUG - REMARK] XX SCH (14:30)
[2021-08-17] MEDS ORDERED: MIDAZOLAM 100MG/100ML PMX 100 ML IV PRN (19:15)
[2021-08-17] MEDS ORDERED: MIDAZOLAM HCL 100 MG in SODIUM CHLORIDE 0.9% 100 ML IV PRN (19:30)
[2021-08-17] MEDS: TAMSULOSIN HCL 0.4MG SR CAPSULE PO SCH (22:32)
[2021-08-18] VITALS (79 sets, daily range): BP systolic 99–198; BP diastolic 55–115
[2021-08-18] MEDS: BLOOD SUGAR DIAGNOSTIC STRIP TEST SCH ×4 (00:28→18:28)
[2021-08-18] MEDS: INSULIN LISPRO 100 UNITS/ML SUBCUT SCH ×4 (00:29→18:00)
[2021-08-18] MEDS: DEXT 5%/0.2% NACL 1,000 ML IV SCH (03:49)
[2021-08-18] MEDS: PIPERACILLIN/TAZOBACTAM 3.375 G in DEXTROSE 5% WATER 50 ML IV SCH ×3 (06:00→22:08)
[2021-08-18 06:02] LABS: HEMATOCRIT. 28.7 % (42.0-52.0); HEMOGLOBIN. 9.7 g/dL (14.0-18.0); MEAN CORPUSCULAR HEMOGLOBIN 30.8 pg (28.0-32.0); MEAN CORPUSCULAR VOLUME 91.2 fL (80.0-94.0); MEAN PLATELET VOLUME 10.4 fl (7.4-10.4); PLATELET 156 x1000/uL (130-400); RED BLOOD CELL COUNT 3.15 mill/uL (4.7-6.1)
[2021-08-18 06:33] LABS: PHOSPHORUS 3.9 mg/dL (2.5-4.9)
[2021-08-18] MEDS: MULTIVITAMINS,THER W-MINERALS TABLET PO SCH (09:07)
[2021-08-18] MEDS: DOCUSATE SODIUM SUGAR FREE 100MG/10ML UDC NG SCH (09:07)
[2021-08-18] MEDS: DEXAMETHASONE 10 MG/ML VIAL IV SCH (09:07)
[2021-08-18] MEDS: GUAIFENESIN 600MG ER TABLET PO SCH ×2 (09:07→22:07)
[2021-08-18] MEDS: PANTOPRAZOLE SODIUM 40 MG/VIAL IV SCH (09:07)
[2021-08-18 10:23] LABS: BG BASE EXCESS 4.6 mmol/L (-2.0-2.0); BG CARBOXYHEMOGLOBIN 0.4 % (0.5-1.5); BG DEOXYHEMOGLOBIN 1.5 % (0.0-5.0); BG FRACTION INSPIRED OXYGEN 85; BG HCO3 ACT 32.1 mmol/L (22.0-26.0); BG METHEMOGLOBIN 0.3 % (0.0-1.5); BG OXYGEN SATURATION 98.5 % (92.0-98.5); BG OXYHEMOGLOBIN 97.8 % (94.0-97.0); BG PCO2 64.2 mmHg (35.0-45.0); BG PH 7.317 (7.350-7.450); BG SAMPLE SITE RIGHT RADIAL; BG TOTAL HEMOGLOBIN 10.6 g/dL (12.0-18.0); BG VENT MODE VENT - AC
[2021-08-18] MEDS: INSULIN GLARGINE UD 100 UNITS/ML SYR SUBCUT SCH ×2 (10:25→22:07)
[2021-08-18 12:07] LABS: PLATELET ESTIMATE NORMAL
[2021-08-18] MEDS: ENOXAPARIN 80MG/0.8ML SYR SUBCUT SCH (14:05)
[2021-08-18] MEDS: FENTANYL CITRATE/PF 2,500 MCG in SODIUM CHLORIDE 0.9% 200 ML IV PRN (16:19)
[2021-08-18] MEDS ORDERED: MIDAZOLAM HCL 2 MG/2 ML VIAL IV NR (18:00)
[2021-08-18] MEDS ORDERED: FUROSEMIDE 40MG/4ML VIAL IVP NR (18:00)
[2021-08-18] MEDS: MIDAZOLAM HCL 2 MG/2 ML VIAL IV PRN ×2 (20:58→22:53)
[2021-08-18] MEDS: METOPROLOL TARTRATE 5MG/5ML VIAL IV PRN (21:53)
[2021-08-18] MEDS: TAMSULOSIN HCL 0.4MG SR CAPSULE PO SCH (22:08)
[2021-08-18] MEDS: HYDRALAZINE 20MG/ML VIAL IV PRN (22:54)
[2021-08-19] VITALS (96 sets, daily range): BP systolic 113–185; BP diastolic 63–114
[2021-08-19] MEDS: BLOOD SUGAR DIAGNOSTIC STRIP TEST SCH ×4 (00:35→18:16)
[2021-08-19] MEDS: ENOXAPARIN 80MG/0.8ML SYR SUBCUT SCH ×3 (00:38→20:54)
[2021-08-19] MEDS: INSULIN LISPRO 100 UNITS/ML SUBCUT SCH ×5 (00:40→23:40)
[2021-08-19 05:12] LABS: HEMATOCRIT. 34.8 % (42.0-52.0); HEMOGLOBIN. 11.1 g/dL (14.0-18.0); MEAN CORPUSCULAR HEMOGLOBIN 30.3 pg (28.0-32.0); MEAN CORPUSCULAR VOLUME 95.5 fL (80.0-94.0); MEAN PLATELET VOLUME 10.5 fl (7.4-10.4); PLATELET 262 x1000/uL (130-400); RED BLOOD CELL COUNT 3.65 mill/uL (4.7-6.1); RED CELL DISTRIBUTION WIDTH 14.2 % (11.6-14.6)
[2021-08-19 05:30] LABS: PHOSPHORUS 3.4 mg/dL (2.5-4.9)
[2021-08-19 05:43] LABS: FOLIC ACID (FOLATE) SERUM 12.7 ng/mL (>5.38)
[2021-08-19] MEDS: PIPERACILLIN/TAZOBACTAM 3.375 G in DEXTROSE 5% WATER 50 ML IV SCH ×2 (06:17→14:30)
[2021-08-19] MEDS ORDERED: CEFEPIME 1,000 MG in DEXTROSE 5% WATER 50 ML IV SCH (08:15)
[2021-08-19 08:33] LABS: BG BASE EXCESS 1.2 mmol/L (-2.0-2.0); BG CARBOXYHEMOGLOBIN 0.3 % (0.5-1.5); BG DEOXYHEMOGLOBIN 5.5 % (0.0-5.0); BG FRACTION INSPIRED OXYGEN 80; BG HCO3 ACT 28.7 mmol/L (22.0-26.0); BG METHEMOGLOBIN 0.1 % (0.0-1.5); BG OXYGEN SATURATION 94.5 % (92.0-98.5); BG OXYHEMOGLOBIN 94.1 % (94.0-97.0); BG PCO2 59.7 mmHg (35.0-45.0); BG PO2 77.9 mmHg (75.0-100.0); BG SAMPLE SITE RIGHT RADIAL; BG TOTAL HEMOGLOBIN 12.1 g/dL (12.0-18.0); BG VENT MODE VENT - AC
[2021-08-19] MEDS: DEXAMETHASONE 4MG/ML 1ML VIAL IV SCH (09:30)
[2021-08-19] MEDS: PANTOPRAZOLE SODIUM 40 MG/VIAL IV SCH (09:30)
[2021-08-19] MEDS: MULTIVITAMINS,THER W-MINERALS TABLET PO SCH (09:30)
[2021-08-19] MEDS: DOCUSATE SODIUM SUGAR FREE 100MG/10ML UDC NG SCH (09:30)
[2021-08-19] MEDS: GUAIFENESIN 600MG ER TABLET PO SCH ×2 (09:31→20:54)
[2021-08-19] MEDS: INSULIN GLARGINE UD 100 UNITS/ML SYR SUBCUT SCH ×2 (09:31→23:41)
[2021-08-19] MEDS: MEROPENEM 1,000 MG in SODIUM CHLORIDE 0.9% 100 ML IV SCH ×2 (09:32→18:04)
[2021-08-19] MEDS: MIDAZOLAM HCL 2 MG/2 ML VIAL IV PRN ×3 (11:40→20:54)
[2021-08-19 15:11] LABS: BG BASE EXCESS 3.2 mmol/L (-2.0-2.0); BG CARBOXYHEMOGLOBIN 0.1 % (0.5-1.5); BG DEOXYHEMOGLOBIN 3.5 % (0.0-5.0); BG FRACTION INSPIRED OXYGEN 80; BG HCO3 ACT 30.5 mmol/L (22.0-26.0); BG METHEMOGLOBIN 0.4 % (0.0-1.5); BG OXYGEN SATURATION 96.5 % (92.0-98.5); BG PCO2 59.9 mmHg (35.0-45.0); BG PH 7.325 (7.350-7.450); BG PO2 89.2 mmHg (75.0-100.0); BG SAMPLE SITE RIGHT RADIAL; BG TOTAL HEMOGLOBIN 11.9 g/dL (12.0-18.0); BG VENT MODE VENT - AC
[2021-08-19 17:02] LABS: PLATELET ESTIMATE NORMAL
[2021-08-19 18:32] LABS: BG BASE EXCESS 5.7 mmol/L (-2.0-2.0); BG DEOXYHEMOGLOBIN 9.3 % (0.0-5.0); BG FRACTION INSPIRED OXYGEN 50; BG HCO3 ACT 31.4 mmol/L (22.0-26.0); BG METHEMOGLOBIN 0.2 % (0.0-1.5); BG OXYGEN SATURATION 90.7 % (92.0-98.5); BG OXYHEMOGLOBIN 90.5 % (94.0-97.0); BG PCO2 50.5 mmHg (35.0-45.0); BG PH 7.411 (7.350-7.450); BG PO2 56.1 mmHg (75.0-100.0); BG SAMPLE SITE RIGHT RADIAL; BG VENT MODE VENT - AC
[2021-08-19] MEDS: TAMSULOSIN HCL 0.4MG SR CAPSULE PO SCH (20:54)
[2021-08-20] VITALS (89 sets, daily range): BP systolic 113–163; BP diastolic 65–100
[2021-08-20] MEDS: BLOOD SUGAR DIAGNOSTIC STRIP TEST SCH ×5 (00:21→23:44)
[2021-08-20] MEDS: MIDAZOLAM HCL 2 MG/2 ML VIAL IV PRN (01:29)
[2021-08-20] MEDS: MEROPENEM 1,000 MG in SODIUM CHLORIDE 0.9% 100 ML IV SCH ×3 (03:07→17:28)
[2021-08-20] MEDS: INSULIN LISPRO 100 UNITS/ML SUBCUT SCH ×4 (06:00→23:44)
[2021-08-20 06:17] LABS: HEMATOCRIT. 34.7 % (42.0-52.0); MEAN CORPUSCULAR HEMOGLOBIN 29.5 pg (28.0-32.0); MEAN CORPUSCULAR VOLUME 93.3 fL (80.0-94.0); MEAN PLATELET VOLUME 10.6 fl (7.4-10.4); PLATELET 220 x1000/uL (130-400); RED BLOOD CELL COUNT 3.72 mill/uL (4.7-6.1); RED CELL DISTRIBUTION WIDTH 14.3 % (11.6-14.6)
[2021-08-20 06:56] LABS: PHOSPHORUS 3.2 mg/dL (2.5-4.9)
[2021-08-20] MEDS: DEXTROSE 5% WATER 1,000 ML IV SCH (08:49)
[2021-08-20] MEDS: GUAIFENESIN 600MG ER TABLET PO SCH ×2 (08:49→21:14)
[2021-08-20] MEDS: DOCUSATE SODIUM SUGAR FREE 100MG/10ML UDC NG SCH (08:49)
[2021-08-20] MEDS: DEXAMETHASONE 4MG/ML 1ML VIAL IV SCH (08:49)
[2021-08-20] MEDS: MULTIVITAMINS,THER W-MINERALS TABLET PO SCH (08:49)
[2021-08-20] MEDS: PANTOPRAZOLE SODIUM 40 MG/VIAL IV SCH (08:49)
[2021-08-20] MEDS: ENOXAPARIN 80MG/0.8ML SYR SUBCUT SCH ×2 (08:50→21:14)
[2021-08-20 09:09] LABS: BG CARBOXYHEMOGLOBIN 0.3 % (0.5-1.5); BG DEOXYHEMOGLOBIN 8.2 % (0.0-5.0); BG FRACTION INSPIRED OXYGEN 60; BG HCO3 ACT 31.4 mmol/L (22.0-26.0); BG METHEMOGLOBIN 0.3 % (0.0-1.5); BG OXYGEN SATURATION 91.8 % (92.0-98.5); BG OXYHEMOGLOBIN 91.2 % (94.0-97.0); BG PCO2 48.8 mmHg (35.0-45.0); BG PH 7.426 (7.350-7.450); BG PO2 63.9 mmHg (75.0-100.0); BG SAMPLE SITE RIGHT RADIAL; BG TOTAL HEMOGLOBIN 11.5 g/dL (12.0-18.0); BG TOTAL RESPIRATORY RATE 39 b/min; BG VENT MODE VENT - AC
[2021-08-20] MEDS: INSULIN GLARGINE UD 100 UNITS/ML SYR SUBCUT SCH ×2 (10:47→21:16)
[2021-08-20 11:09] LABS: PLATELET ESTIMATE NORMAL
[2021-08-20] MEDS: FENTANYL CITRATE/PF 2,500 MCG in SODIUM CHLORIDE 0.9% 200 ML IV PRN (17:29)
[2021-08-20] MEDS: TAMSULOSIN HCL 0.4MG SR CAPSULE PO SCH (21:15)
[2021-08-21] VITALS (94 sets, daily range): BP systolic 70–168; BP diastolic 40–101
[2021-08-21] MEDS: MEROPENEM 1,000 MG in SODIUM CHLORIDE 0.9% 100 ML IV SCH ×3 (02:07→17:58)
[2021-08-21] MEDS: DEXTROSE 5% WATER 1,000 ML IV SCH (04:49)
[2021-08-21] MEDS: INSULIN LISPRO 100 UNITS/ML SUBCUT SCH ×3 (05:03→17:54)
[2021-08-21] MEDS: BLOOD SUGAR DIAGNOSTIC STRIP TEST SCH ×3 (05:03→17:53)
[2021-08-21 06:21] LABS: HEMATOCRIT. 33.4 % (42.0-52.0); HEMOGLOBIN. 10.6 g/dL (14.0-18.0); MEAN CORPUSCULAR HEMOGLOBIN 29.7 pg (28.0-32.0); MEAN CORPUSCULAR VOLUME 93.3 fL (80.0-94.0); MEAN PLATELET VOLUME 10.7 fl (7.4-10.4); PLATELET 239 x1000/uL (130-400); RED BLOOD CELL COUNT 3.58 mill/uL (4.7-6.1); RED CELL DISTRIBUTION WIDTH 14.5 % (11.6-14.6)
[2021-08-21 07:33] LABS: CHLORIDE 111 mEq/L (98-107)
[2021-08-21 08:25] LABS: BG SAMPLE SITE RIGHT RADIAL; BG VENT MODE VENT/AC
[2021-08-21 08:26] LABS: BG PCO2 64.4 mmHg (35.0-45.0); BG PH 7.343 (7.350-7.450); BG TIDAL VOLUME(mL) 450 mL; BG VENT RATE 20 set
[2021-08-21 08:27] LABS: BG CARBOXYHEMOGLOBIN 0.3 % (0.5-1.5); BG DEOXYHEMOGLOBIN 2.8 % (0.0-5.0); BG HCO3 ACT 34.2 mmol/L (22.0-26.0); BG METHEMOGLOBIN 0.3 % (0.0-1.5); BG OXYGEN SATURATION 97.2 % (92.0-98.5); BG OXYHEMOGLOBIN 96.6 % (94.0-97.0); BG PO2 100.6 mmHg (75.0-100.0); BG TOTAL HEMOGLOBIN 9.8 g/dL (12.0-18.0)
[2021-08-21] MEDS: GUAIFENESIN 600MG ER TABLET PO SCH ×2 (08:33→20:53)
[2021-08-21] MEDS: DEXAMETHASONE 4MG/ML 1ML VIAL IV SCH (08:33)
[2021-08-21] MEDS: ENOXAPARIN 80MG/0.8ML SYR SUBCUT SCH ×2 (08:33→20:53)
[2021-08-21] MEDS: PANTOPRAZOLE SODIUM 40 MG/VIAL IV SCH (08:33)
[2021-08-21] MEDS: MULTIVITAMINS,THER W-MINERALS TABLET PO SCH (08:33)
[2021-08-21] MEDS: DEXT 5% WATER + KCL 20MEQ/L 1,000 ML IV SCH ×2 (08:33→20:53)
[2021-08-21] MEDS: DOCUSATE SODIUM SUGAR FREE 100MG/10ML UDC NG SCH (08:34)
[2021-08-21] MEDS: INSULIN GLARGINE UD 100 UNITS/ML SYR SUBCUT SCH ×2 (10:23→21:29)
[2021-08-21 12:25] LABS: PLATELET ESTIMATE NORMAL
[2021-08-21] MEDS: FENTANYL CITRATE/PF 2,500 MCG in SODIUM CHLORIDE 0.9% 200 ML IV PRN (16:41)
[2021-08-21] MEDS: TAMSULOSIN HCL 0.4MG SR CAPSULE PO SCH (20:53)
[2021-08-22] VITALS (97 sets, daily range): BP systolic 76–151; BP diastolic 47–99
[2021-08-22] MEDS: BLOOD SUGAR DIAGNOSTIC STRIP TEST SCH ×5 (00:05→23:00)
[2021-08-22] MEDS: MEROPENEM 1,000 MG in SODIUM CHLORIDE 0.9% 100 ML IV SCH ×3 (01:18→17:15)
[2021-08-22] MEDS: INSULIN LISPRO 100 UNITS/ML SUBCUT SCH ×5 (05:05→23:01)
[2021-08-22 06:01] LABS: HEMATOCRIT. 30.1 % (42.0-52.0); HEMOGLOBIN. 9.8 g/dL (14.0-18.0); MEAN CORPUSCULAR HEMOGLOBIN 30.5 pg (28.0-32.0); MEAN CORPUSCULAR VOLUME 93.9 fL (80.0-94.0); MEAN PLATELET VOLUME 10.9 fl (7.4-10.4); PLATELET 189 x1000/uL (130-400); RED BLOOD CELL COUNT 3.21 mill/uL (4.7-6.1); RED CELL DISTRIBUTION WIDTH 14.4 % (11.6-14.6)
[2021-08-22 06:30] LABS: PHOSPHORUS 3.4 mg/dL (2.5-4.9)
[2021-08-22] MEDS ORDERED: LIDOCAINE HCL/EPINEPHRINE 1%-EPI 1:100,000 10 ML VIAL INFIL SCH (06:30)
[2021-08-22] MEDS ORDERED: LIDOCAINE HCL 1% 20ML VIAL (Pyxis) INJ ONE (07:21)
[2021-08-22] MEDS: MULTIVITAMINS,THER W-MINERALS TABLET PO SCH (08:42)
[2021-08-22] MEDS: FENTANYL CITRATE/PF 2,500 MCG in SODIUM CHLORIDE 0.9% 200 ML IV PRN ×2 (08:42→17:15)
[2021-08-22] MEDS: PANTOPRAZOLE SODIUM 40 MG/VIAL IV SCH (08:43)
[2021-08-22] MEDS: DOCUSATE SODIUM SUGAR FREE 100MG/10ML UDC NG SCH (08:43)
[2021-08-22] MEDS: DEXTROSE 5% WATER 1,000 ML IV SCH ×2 (08:43→20:30)
[2021-08-22] MEDS: ENOXAPARIN 80MG/0.8ML SYR SUBCUT SCH ×2 (08:43→20:31)
[2021-08-22] MEDS: GUAIFENESIN 600MG ER TABLET PO SCH ×2 (08:43→20:31)
[2021-08-22] MEDS: DEXAMETHASONE 4MG/ML 1ML VIAL IV SCH (08:43)
[2021-08-22 09:19] LABS: BG BASE EXCESS 5.8 mmol/L (-2.0-2.0); BG CARBOXYHEMOGLOBIN 0.2 % (0.5-1.5); BG DEOXYHEMOGLOBIN 1.2 % (0.0-5.0); BG FRACTION INSPIRED OXYGEN 80; BG HCO3 ACT 33.9 mmol/L (22.0-26.0); BG METHEMOGLOBIN 0.4 % (0.0-1.5); BG OXYGEN SATURATION 98.8 % (92.0-98.5); BG OXYHEMOGLOBIN 98.2 % (94.0-97.0); BG PCO2 71.4 mmHg (35.0-45.0); BG PH 7.294 (7.350-7.450); BG PO2 157.4 mmHg (75.0-100.0); BG SAMPLE SITE RIGHT RADIAL; BG TOTAL HEMOGLOBIN 9.8 g/dL (12.0-18.0); BG VENT MODE VENT - AC
[2021-08-22] MEDS: INSULIN GLARGINE UD 100 UNITS/ML SYR SUBCUT SCH ×3 (09:54→21:44)
[2021-08-22 14:18] LABS: PLATELET ESTIMATE NORMAL
[2021-08-22] MEDS: MIDAZOLAM HCL 2 MG/2 ML VIAL IV PRN ×2 (17:15→20:31)
[2021-08-22] MEDS: TAMSULOSIN HCL 0.4MG SR CAPSULE PO SCH (20:31)
[2021-08-22] MEDS: LORAZEPAM 2MG/ML CPJ IV PRN (22:57)
[2021-08-23] VITALS (93 sets, daily range): BP systolic 84–156; BP diastolic 33–117
[2021-08-23] MEDS: FENTANYL CITRATE/PF 2,500 MCG in SODIUM CHLORIDE 0.9% 200 ML IV PRN ×3 (01:13→18:47)
[2021-08-23] MEDS: MEROPENEM 1,000 MG in SODIUM CHLORIDE 0.9% 100 ML IV SCH ×3 (01:14→17:09)
[2021-08-23] MEDS: DEXTROSE 50% WATER 50ML SYRINGE IV PRN ×2 (05:33→17:10)
[2021-08-23] MEDS: INSULIN LISPRO 100 UNITS/ML SUBCUT SCH ×3 (05:39→17:03)
[2021-08-23] MEDS: BLOOD SUGAR DIAGNOSTIC STRIP TEST SCH ×3 (05:39→17:03)
[2021-08-23 06:05] LABS: CHLORIDE 109 mEq/L (98-107)
[2021-08-23 06:24] LABS: HEMATOCRIT. 26.1 % (42.0-52.0); HEMOGLOBIN. 8.7 g/dL (14.0-18.0); MEAN CORPUSCULAR HEMOGLOBIN 31.2 pg (28.0-32.0); MEAN CORPUSCULAR VOLUME 93.5 fL (80.0-94.0); MEAN PLATELET VOLUME 11.2 fl (7.4-10.4); PLATELET 147 x1000/uL (130-400); RED BLOOD CELL COUNT 2.79 mill/uL (4.7-6.1); RED CELL DISTRIBUTION WIDTH 13.9 % (11.6-14.6)
[2021-08-23 06:33] LABS: PROTHROMBIN TIME 11.2 sec (9.6-11.0)
[2021-08-23] MEDS: DEXAMETHASONE 4MG/ML 1ML VIAL IV SCH (08:06)
[2021-08-23] MEDS: GUAIFENESIN 600MG ER TABLET PO SCH ×2 (08:06→21:38)
[2021-08-23] MEDS: DOCUSATE SODIUM SUGAR FREE 100MG/10ML UDC NG SCH (08:06)
[2021-08-23] MEDS: MULTIVITAMINS,THER W-MINERALS TABLET PO SCH (08:06)
[2021-08-23] MEDS: PANTOPRAZOLE SODIUM 40 MG/VIAL IV SCH (08:06)
[2021-08-23] MEDS ORDERED: CALCIUM CHLORIDE 1GM/10ML SYR IV ONE (08:28)
[2021-08-23] MEDS ORDERED: VECURONIUM BROMIDE 10 MG/VIAL IV ONE ×2 (08:35→08:52)
[2021-08-23] MEDS ORDERED: VASOPRESSIN 20 UNIT/ML 1ML ONE (08:37)
[2021-08-23] MEDS ORDERED: GLYCOPYRROLATE 0.2 MG/ML 2ML VIAL ONE (08:40)
[2021-08-23] MEDS: INSULIN GLARGINE UD 100 UNITS/ML SYR SUBCUT SCH ×2 (09:16→21:49)
[2021-08-23] MEDS: DEXTROSE 5% WATER 1,000 ML IV SCH ×2 (09:16→21:39)
[2021-08-23 10:27] LABS: PLATELET ESTIMATE NORMAL
[2021-08-23 11:06] LABS: BG BASE EXCESS 5.8 mmol/L (-2.0-2.0); BG CARBOXYHEMOGLOBIN 0.9 % (0.5-1.5); BG DEOXYHEMOGLOBIN 8.7 % (0.0-5.0); BG HCO3 ACT 34.5 mmol/L (22.0-26.0); BG OXYGEN SATURATION 91.2 % (92.0-98.5); BG OXYHEMOGLOBIN 90.4 % (94.0-97.0); BG PCO2 72.3 mmHg (35.0-45.0); BG PH 7.296 (7.350-7.450); BG PO2 65.3 mmHg (75.0-100.0); BG SAMPLE SITE RIGHT RADIAL; BG TOTAL HEMOGLOBIN 12.3 g/dL (12.0-18.0); BG VENT MODE VENT - AC
[2021-08-23] MEDS: LORAZEPAM 2MG/ML CPJ IV PRN (17:10)
[2021-08-23] MEDS: TAMSULOSIN HCL 0.4MG SR CAPSULE PO SCH (21:38)
[2021-08-24] VITALS (94 sets, daily range): BP systolic 71–165; BP diastolic 46–104
[2021-08-24] MEDS: MIDAZOLAM HCL 2 MG/2 ML VIAL IV PRN (01:33)
[2021-08-24] MEDS: FENTANYL CITRATE/PF 2,500 MCG in SODIUM CHLORIDE 0.9% 200 ML IV PRN ×4 (01:33→23:26)
[2021-08-24] MEDS: MEROPENEM 1,000 MG in SODIUM CHLORIDE 0.9% 100 ML IV SCH ×3 (02:53→16:17)
[2021-08-24 05:43] LABS: HEMOGLOBIN. 10.1 g/dL (14.0-18.0); MEAN CORPUSCULAR HEMOGLOBIN 30.5 pg (28.0-32.0); MEAN CORPUSCULAR VOLUME 93.5 fL (80.0-94.0); MEAN PLATELET VOLUME 11.1 fl (7.4-10.4); PLATELET 171 x1000/uL (130-400); RED BLOOD CELL COUNT 3.31 mill/uL (4.7-6.1); RED CELL DISTRIBUTION WIDTH 13.7 % (11.6-14.6)
[2021-08-24 05:54] LABS: PHOSPHORUS 3.3 mg/dL (2.5-4.9)
[2021-08-24] MEDS: INSULIN LISPRO 100 UNITS/ML SUBCUT SCH ×4 (06:00→16:16)
[2021-08-24] MEDS: BLOOD SUGAR DIAGNOSTIC STRIP TEST SCH ×4 (06:32→16:16)
[2021-08-24] MEDS ORDERED: LACTULOSE 20G/30ML UDC PO NR (08:00)
[2021-08-24] MEDS: DEXAMETHASONE 4MG/ML 1ML VIAL IV SCH (08:44)
[2021-08-24] MEDS: MULTIVITAMINS,THER W-MINERALS TABLET PO SCH (08:44)
[2021-08-24] MEDS: PANTOPRAZOLE SODIUM 40 MG/VIAL IV SCH (08:44)
[2021-08-24] MEDS: GUAIFENESIN 600MG ER TABLET PO SCH ×2 (08:44→21:57)
[2021-08-24] MEDS: DOCUSATE SODIUM SUGAR FREE 100MG/10ML UDC NG SCH (08:44)
[2021-08-24] MEDS: DEXTROSE 5% WATER 1,000 ML IV SCH ×2 (08:45→21:58)
[2021-08-24 09:41] LABS: BG BASE EXCESS 6.6 mmol/L (-2.0-2.0); BG CARBOXYHEMOGLOBIN 0.4 % (0.5-1.5); BG DEOXYHEMOGLOBIN 2.6 % (0.0-5.0); BG FRACTION INSPIRED OXYGEN 100; BG HCO3 ACT 33.8 mmol/L (22.0-26.0); BG METHEMOGLOBIN 0.2 % (0.0-1.5); BG OXYGEN SATURATION 97.4 % (92.0-98.5); BG OXYHEMOGLOBIN 96.8 % (94.0-97.0); BG PCO2 63.8 mmHg (35.0-45.0); BG PH 7.342 (7.350-7.450); BG PO2 102.8 mmHg (75.0-100.0); BG SAMPLE SITE RIGHT RADIAL; BG TOTAL HEMOGLOBIN 10.2 g/dL (12.0-18.0); BG VENT MODE VENT - AC
[2021-08-24] MEDS ORDERED: BISACODYL 10MG SUPP PR PRN (11:00)
[2021-08-24] MEDS: LORAZEPAM 2MG/ML CPJ IV PRN ×2 (12:02→17:56)
[2021-08-24] MEDS: METOCLOPRAMIDE HCL 10MG/2ML VIAL IV SCH (17:56)
[2021-08-24] MEDS: TAMSULOSIN HCL 0.4MG SR CAPSULE PO SCH (21:58)
[2021-08-25] VITALS (91 sets, daily range): BP systolic 89–157; BP diastolic 54–108
[2021-08-25] MEDS: LORAZEPAM 2MG/ML CPJ IV PRN ×4 (00:35→18:47)
[2021-08-25 00:42] LABS: PLATELET ESTIMATE NORMAL
[2021-08-25] MEDS: BLOOD SUGAR DIAGNOSTIC STRIP TEST SCH ×5 (00:57→23:08)
[2021-08-25] MEDS: METOCLOPRAMIDE HCL 10MG/2ML VIAL IV SCH ×5 (00:57→23:09)
[2021-08-25] MEDS: MEROPENEM 1,000 MG in SODIUM CHLORIDE 0.9% 100 ML IV SCH ×3 (02:25→17:31)
[2021-08-25] MEDS: INSULIN LISPRO 100 UNITS/ML SUBCUT SCH ×5 (05:42→23:09)
[2021-08-25] MEDS: FENTANYL CITRATE/PF 2,500 MCG in SODIUM CHLORIDE 0.9% 200 ML IV PRN ×3 (07:14→21:43)
[2021-08-25] MEDS: MULTIVITAMINS,THER W-MINERALS TABLET PO SCH (08:30)
[2021-08-25] MEDS: DEXAMETHASONE 4MG/ML 1ML VIAL IV SCH (08:30)
[2021-08-25] MEDS: PANTOPRAZOLE SODIUM 40 MG/VIAL IV SCH (08:30)
[2021-08-25] MEDS: GUAIFENESIN 600MG ER TABLET PO SCH ×2 (08:30→20:18)
[2021-08-25] MEDS: DOCUSATE SODIUM SUGAR FREE 100MG/10ML UDC NG SCH (08:30)
[2021-08-25 09:41] LABS: BG BASE EXCESS 7.4 mmol/L (-2.0-2.0); BG CARBOXYHEMOGLOBIN 0.8 % (0.5-1.5); BG DEOXYHEMOGLOBIN 7.6 % (0.0-5.0); BG FRACTION INSPIRED OXYGEN 100; BG HCO3 ACT 34.3 mmol/L (22.0-26.0); BG METHEMOGLOBIN 0.3 % (0.0-1.5); BG OXYGEN SATURATION 92.3 % (92.0-98.5); BG OXYHEMOGLOBIN 91.3 % (94.0-97.0); BG PCO2 64.2 mmHg (35.0-45.0); BG PH 7.346 (7.350-7.450); BG SAMPLE SITE RIGHT RADIAL; BG TOTAL RESPIRATORY RATE 26 b/min; BG VENT MODE VENT - AC
[2021-08-25 10:36] LABS: HEMATOCRIT. 26.3 % (42.0-52.0); HEMOGLOBIN. 8.6 g/dL (14.0-18.0); MEAN CORPUSCULAR HEMOGLOBIN 30.6 pg (28.0-32.0); MEAN CORPUSCULAR VOLUME 93.9 fL (80.0-94.0); MEAN PLATELET VOLUME 11.1 fl (7.4-10.4); PLATELET 166 x1000/uL (130-400); RED CELL DISTRIBUTION WIDTH 13.8 % (11.6-14.6)
[2021-08-25] MEDS ORDERED: SODIUM POLYSTYRENE SULFONATE 15 G/60 ML BOT PO NR (11:15)
[2021-08-25] MEDS: DEXTROSE 5% WATER 1,000 ML IV SCH (11:38)
[2021-08-25 12:22] LABS: PLATELET ESTIMATE NORMAL
[2021-08-25] MEDS ORDERED: METOCLOPRAMIDE HCL 10MG/2ML VIAL IV SCH (18:00)
[2021-08-25] MEDS: TAMSULOSIN HCL 0.4MG SR CAPSULE PO SCH (20:18)
[2021-08-26] VITALS (98 sets, daily range): BP systolic 69–141; BP diastolic 45–77
[2021-08-26] MEDS: DEXTROSE 5% WATER 1,000 ML IV SCH (00:18)
[2021-08-26] MEDS: LORAZEPAM 2MG/ML CPJ IV PRN (00:21)
[2021-08-26] MEDS: MEROPENEM 1,000 MG in SODIUM CHLORIDE 0.9% 100 ML IV SCH ×3 (01:05→18:45)
[2021-08-26] MEDS ORDERED: MIDAZOLAM 100MG/100ML PMX 100 ML IV PRN (02:00)
[2021-08-26] MEDS: MIDAZOLAM HCL 100 MG in SODIUM CHLORIDE 0.9% 100 ML IV PRN ×2 (02:02→12:54)
[2021-08-26] MEDS: FENTANYL CITRATE/PF 2,500 MCG in SODIUM CHLORIDE 0.9% 200 ML IV PRN ×3 (05:33→19:16)
[2021-08-26] MEDS: BLOOD SUGAR DIAGNOSTIC STRIP TEST SCH ×4 (05:59→23:15)
[2021-08-26] MEDS: INSULIN LISPRO 100 UNITS/ML SUBCUT SCH ×4 (05:59→23:15)
[2021-08-26] MEDS: METOCLOPRAMIDE HCL 10MG/2ML VIAL IV SCH ×4 (06:00→23:15)
[2021-08-26 06:04] LABS: HEMATOCRIT. 27.8 % (42.0-52.0); HEMOGLOBIN. 9.4 g/dL (14.0-18.0); MEAN CORPUSCULAR HEMOGLOBIN 31.6 pg (28.0-32.0); MEAN CORPUSCULAR VOLUME 93.3 fL (80.0-94.0); MEAN PLATELET VOLUME 10.5 fl (7.4-10.4); PHOSPHORUS 3.8 mg/dL (2.5-4.9); PLATELET 222 x1000/uL (130-400); RED BLOOD CELL COUNT 2.98 mill/uL (4.7-6.1); RED CELL DISTRIBUTION WIDTH 14.2 % (11.6-14.6)
[2021-08-26] MEDS: PANTOPRAZOLE SODIUM 40 MG/VIAL IV SCH (08:29)
[2021-08-26] MEDS: DEXAMETHASONE 4MG/ML 1ML VIAL IV SCH (08:29)
[2021-08-26] MEDS: GUAIFENESIN 600MG ER TABLET PO SCH ×2 (08:30→21:00)
[2021-08-26] MEDS: DOCUSATE SODIUM SUGAR FREE 100MG/10ML UDC NG SCH (08:30)
[2021-08-26] MEDS: MULTIVITAMINS,THER W-MINERALS TABLET PO SCH (08:30)
[2021-08-26] MEDS: PHENYLEPHRINE 100 MG in DEXT 5% WATER 240 ML IV PRN (10:05)
[2021-08-26 11:13] LABS: BG BASE EXCESS 3.3 mmol/L (-2.0-2.0); BG CARBOXYHEMOGLOBIN 0.8 % (0.5-1.5); BG DEOXYHEMOGLOBIN 16.5 % (0.0-5.0); BG HCO3 ACT 31.5 mmol/L (22.0-26.0); BG OXYGEN SATURATION 83.4 % (92.0-98.5); BG OXYHEMOGLOBIN 82.7 % (94.0-97.0); BG PCO2 70.3 mmHg (35.0-45.0); BG PH 7.269 (7.350-7.450); BG PO2 52.1 mmHg (75.0-100.0); BG SAMPLE SITE RIGHT RADIAL; BG VENT MODE VENT - AC
[2021-08-26 14:33] LABS: PLATELET ESTIMATE NORMAL
[2021-08-26 16:41] LABS: BG BASE EXCESS 6.5 mmol/L (-2.0-2.0); BG CARBOXYHEMOGLOBIN 1.1 % (0.5-1.5); BG DEOXYHEMOGLOBIN 14.2 % (0.0-5.0); BG FRACTION INSPIRED OXYGEN 100; BG HCO3 ACT 34.4 mmol/L (22.0-26.0); BG METHEMOGLOBIN 0.4 % (0.0-1.5); BG OXYGEN SATURATION 85.6 % (92.0-98.5); BG OXYHEMOGLOBIN 84.3 % (94.0-97.0); BG PCO2 70.6 mmHg (35.0-45.0); BG PH 7.306 (7.350-7.450); BG PO2 50.9 mmHg (75.0-100.0); BG SAMPLE SITE RIGHT RADIAL; BG TOTAL HEMOGLOBIN 9.8 g/dL (12.0-18.0); BG TOTAL RESPIRATORY RATE 26 b/min; BG VENT MODE VENT - AC
[2021-08-26] MEDS: TAMSULOSIN HCL 0.4MG SR CAPSULE PO SCH (21:00)
[2021-08-27] VITALS (90 sets, daily range): BP systolic 80–117; BP diastolic 40–71
[2021-08-27] MEDS: FENTANYL CITRATE/PF 2,500 MCG in SODIUM CHLORIDE 0.9% 200 ML IV PRN ×4 (02:31→21:11)
[2021-08-27] MEDS: MIDAZOLAM HCL 100 MG in SODIUM CHLORIDE 0.9% 100 ML IV PRN ×3 (03:22→21:12)
[2021-08-27] MEDS: PHENYLEPHRINE 100 MG in DEXT 5% WATER 240 ML IV PRN ×2 (03:55→17:54)
[2021-08-27] MEDS: INSULIN LISPRO 100 UNITS/ML SUBCUT SCH (06:00)
[2021-08-27 06:09] LABS: HEMOGLOBIN. 8.8 g/dL (14.0-18.0); MEAN CORPUSCULAR HEMOGLOBIN 30.3 pg (28.0-32.0); MEAN PLATELET VOLUME 10.5 fl (7.4-10.4); PLATELET 262 x1000/uL (130-400); RED BLOOD CELL COUNT 2.91 mill/uL (4.7-6.1); RED CELL DISTRIBUTION WIDTH 14.5 % (11.6-14.6)
[2021-08-27] MEDS: BLOOD SUGAR DIAGNOSTIC STRIP TEST SCH (06:37)
[2021-08-27] MEDS: METOCLOPRAMIDE HCL 10MG/2ML VIAL IV SCH ×3 (06:37→17:01)
[2021-08-27 07:52] LABS: PHOSPHORUS 4.7 mg/dL (2.5-4.9)
[2021-08-27] MEDS: DEXT 5%/0.45% NACL 1000ML 1,000 ML IV SCH (08:16)
[2021-08-27] MEDS: PANTOPRAZOLE SODIUM 40 MG/VIAL IV SCH (08:16)
[2021-08-27] MEDS: DEXAMETHASONE 4MG/ML 1ML VIAL IV SCH (08:16)
[2021-08-27] MEDS: GUAIFENESIN 600MG ER TABLET PO SCH ×2 (08:16→21:08)
[2021-08-27] MEDS: DOCUSATE SODIUM SUGAR FREE 100MG/10ML UDC NG SCH (08:17)
[2021-08-27] MEDS: MULTIVITAMINS,THER W-MINERALS TABLET PO SCH (08:17)
[2021-08-27] MEDS: METRONIDAZOLE 500MG TABLET PO SCH ×2 (13:18→21:08)
[2021-08-27 13:45] LABS: PLATELET ESTIMATE NORMAL
[2021-08-27] MEDS: CEFEPIME 1,000 MG in DEXTROSE 5% WATER 50 ML IV SCH (13:45)
[2021-08-27] MEDS ORDERED: VANCOMYCIN 1500MG in DEXTROSE 5% WATER 250ML IV NR (14:00)
[2021-08-27] MEDS ORDERED: POLYETHYLENE GLYCOL 3350 (17GM) 1 DOSE PACK PO PRN (14:45)
[2021-08-27] MEDS: LORAZEPAM 2MG/ML CPJ IV PRN (18:56)
[2021-08-27] MEDS: TAMSULOSIN HCL 0.4MG SR CAPSULE PO SCH (21:09)
[2021-08-28] VITALS (38 sets, daily range): BP systolic 73–133; BP diastolic 30–66
[2021-08-28] MEDS: DEXT 5%/0.45% NACL 1000ML 1,000 ML IV SCH ×2 (01:00→04:00)
[2021-08-28] MEDS: PHENYLEPHRINE 100 MG in DEXT 5% WATER 240 ML IV PRN ×3 (01:03→08:30)
[2021-08-28] MEDS: CEFEPIME 1,000 MG in DEXTROSE 5% WATER 50 ML IV SCH ×2 (01:30→13:16)
[2021-08-28] MEDS: METOCLOPRAMIDE HCL 10MG/2ML VIAL IV SCH ×3 (05:23→13:16)
[2021-08-28 06:03] LABS: HEMATOCRIT. 28.4 % (42.0-52.0); HEMOGLOBIN. 9.3 g/dL (14.0-18.0); MEAN CORPUSCULAR HEMOGLOBIN 30.5 pg (28.0-32.0); MEAN CORPUSCULAR VOLUME 93.4 fL (80.0-94.0); MEAN PLATELET VOLUME 10.5 fl (7.4-10.4); PLATELET 283 x1000/uL (130-400); RED BLOOD CELL COUNT 3.04 mill/uL (4.7-6.1); RED CELL DISTRIBUTION WIDTH 14.7 % (11.6-14.6)
[2021-08-28] MEDS ORDERED: DEXT 5%/0.9% NACL 1,000 ML IV SCH (08:00)
[2021-08-28] MEDS: DEXAMETHASONE 4MG/ML 1ML VIAL IV SCH (08:28)
[2021-08-28] MEDS: DOCUSATE SODIUM SUGAR FREE 100MG/10ML UDC NG SCH (08:28)
[2021-08-28] MEDS: PANTOPRAZOLE SODIUM 40 MG/VIAL IV SCH (08:28)
[2021-08-28] MEDS: MULTIVITAMINS,THER W-MINERALS TABLET PO SCH (08:28)
[2021-08-28] MEDS: GUAIFENESIN 600MG ER TABLET PO SCH (08:29)
[2021-08-28] MEDS: METRONIDAZOLE 500MG TABLET PO SCH (08:29)
[2021-08-28] MEDS ORDERED: VANCOMYCIN 750 MG PREMIX 150 ML IV SCH (10:00)
[2021-08-28] MEDS ORDERED: VANCOMYCIN 1 G PREMIX 200 ML IV SCH (10:00)
[2021-08-28 10:31] LABS: BG CARBOXYHEMOGLOBIN 1.4 % (0.5-1.5); BG DEOXYHEMOGLOBIN 36.9 % (0.0-5.0); BG HCO3 ACT 26.8 mmol/L (22.0-26.0); BG METHEMOGLOBIN 0.3 % (0.0-1.5); BG OXYGEN SATURATION 62.5 % (92.0-98.5); BG OXYHEMOGLOBIN 61.4 % (94.0-97.0); BG PCO2 78.8 mmHg (35.0-45.0); BG PO2 35.8 mmHg (75.0-100.0); BG SAMPLE SITE RIGHT RADIAL; BG TOTAL HEMOGLOBIN 10.1 g/dL (12.0-18.0); BG VENT MODE VENT - AC
[2021-08-28] MEDS ORDERED: EPINEPHRINE 0.1MG/ML (1:10,000) 10ML SYR ONE (12:30)
[2021-08-28] MEDS ORDERED: SODIUM BICARBONATE 8.4% 1 MEQ/ML 50ML SYR IV ONE (12:30)
[2021-08-28] MEDS ORDERED: CALCIUM CHLORIDE 1GM/10ML SYR IV ONE (12:30)
[2021-08-28] MEDS ORDERED: ADENOSINE 3 MG/ML 2ML VIAL IV ONE (12:30)
[2021-08-28 14:08] LABS: PLATELET ESTIMATE NORMAL
== END 2021-08-28 15:13 | DRG 3 ==
LOC: ER 08:19 → EDBEDREQ 09:58 → MICUSO 12:21 → ENRESERV 08-06 04:14 → 7WST 08-06 04:15 → MICUSO 08-12 14:17
PROVIDERS: ADMIT Internal Medicine Pulmonary Disease; ATTEND Internal Medicine Pulmonary Disease
PROC: 5A09457 Assistance with Respiratory Ventilation, 24-96 Consecutive Hours, Continuous Positive Airway Pressure (ICD-10-PCS; 2021-08-05)
PROC: 5A09357 Assistance with Respiratory Ventilation, Less than 24 Consecutive Hours, Continuous Positive Airway Pressure (ICD-10-PCS; 2021-08-11)
PROC: 5A1955Z Respiratory Ventilation, Greater than 96 Consecutive Hours (ICD-10-PCS; principal; 2021-08-12)
PROC: 0BH17EZ Insertion of Endotracheal Airway into Trachea, Via Natural or Artificial Opening (ICD-10-PCS; 2021-08-12)
PROC: 02HV33Z Insertion of Infusion Device into Superior Vena Cava, Percutaneous Approach (ICD-10-PCS; 2021-08-13)
PROC: B548ZZA Ultrasonography of Superior Vena Cava, Guidance (ICD-10-PCS; 2021-08-13)
PROC: 0W9B30Z Drainage of Left Pleural Cavity with Drainage Device, Percutaneous Approach (ICD-10-PCS; 2021-08-22)
PROC: 0GBJ0ZZ Excision of Thyroid Gland Isthmus, Open Approach (ICD-10-PCS; 2021-08-23)
PROC: 0B110F4 Bypass Trachea to Cutaneous with Tracheostomy Device, Open Approach (ICD-10-PCS; 2021-08-23)
PROC: 0W9930Z Drainage of Right Pleural Cavity with Drainage Device, Percutaneous Approach (ICD-10-PCS; 2021-08-27)
PROC: 5A12012 Performance of Cardiac Output, Single, Manual (ICD-10-PCS; 2021-08-28)
DX: U07.1 COVID-19 (principal); E43 Unspecified severe protein-calorie malnutrition; N17.0 Acute kidney failure with tubular necrosis; J12.82 Pneumonia due to coronavirus disease 2019; J96.22 Acute and chronic respiratory failure with hypercapnia; I61.9 Nontraumatic intracerebral hemorrhage, unspecified; J96.21 Acute and chronic respiratory failure with hypoxia; J93.9 Pneumothorax, unspecified; J95.01 Hemorrhage from tracheostomy stoma; Z99.11 Dependence on respirator [ventilator] status; I13.0 Hypertensive heart and chronic kidney disease with heart failure and stage 1 through stage 4 chronic kidney disease, or unspecified chronic kidney disease; I50.32 Chronic diastolic (congestive) heart failure; R65.10 Systemic inflammatory response syndrome (SIRS) of non-infectious origin without acute organ dysfunction; U09.9 Post COVID-19 condition, unspecified; E87.8 Other disorders of electrolyte and fluid balance, not elsewhere classified; E11.22 Type 2 diabetes mellitus with diabetic chronic kidney disease; E78.1 Pure hyperglyceridemia; E87.5 Hyperkalemia; D69.6 Thrombocytopenia, unspecified; N40.0 Benign prostatic hyperplasia without lower urinary tract symptoms; R80.9 Proteinuria, unspecified; R13.12 Dysphagia, oropharyngeal phase; R74.01 Elevation of levels of liver transaminase levels; D64.9 Anemia, unspecified; I27.20 Pulmonary hypertension, unspecified; J84.10 Pulmonary fibrosis, unspecified; R31.0 Gross hematuria; Z66 Do not resuscitate; N18.9 Chronic kidney disease, unspecified; F10.10 Alcohol abuse, uncomplicated; Y90.9 Presence of alcohol in blood, level not specified; G89.29 Other chronic pain; Z68.22 Body mass index [BMI] 22.0-22.9, adult; Z51.5 Encounter for palliative care; Z82.49 Family history of ischemic heart disease and other diseases of the circulatory system; Z87.01 Personal history of pneumonia (recurrent)
CPT/HCPCS: 31500; 36415; 36600; 71045; 74018; 76937; 78580; 80048; 80053; 80061; 81003; 82375; 82550; 82570; 82607; 82728; 82746; 82805; 82962; 83036; 83520; 83540; 83550; 83605; 83615; 83735; 83880; 84100; 84145; 84156; 84300; 84443; 84484; 85025; 85379; 85384; 86140; 86256; 86431; 86705; 86709; 86803; 87070; 87340; 87426; 92950; 93005; 93306; 93970; 94002; 94003; 94660; 99291; A6261; C1725; C1893; C9113; J0153; J0330; J0360; J0456; J0692; J0696; J1100; J1650; J1815; J1940; J1956; J2060; J2185; J2250; J2370; J2405; J2543; J2765; J3010; J3370; J3490; J7030; J7040; J7042; J7050; J7060; J7070; U0003; U0005; A4315